=== PATIENT | female | born 1995 | race Caucasian/White ===

== ENCOUNTER 2016-11-03 23:50 | Emergency (ER) | payer SELFPAY ==
[~2016-11-03] VITALS: Ht 154.9 cm; Wt 52.2 kg
[~2016-11-03 23:50] MED LIST: ACHD5005 PO; AMOX500C2 PO; BIRTH CONTROL; CEPH-507 PO; DEPOPROVERA; HYDR-3812 PO; IBP600T1 PO; IBUP-1773 PO; LRT10T; METH4TAB PO; METR500T PO; PREN-98 PO; PREN1TAB14 PO; SERT50TA; SRTR100T; ZOLOFT
[2016-11-04] MEDS ORDERED: hydrOXYzine (VISTARIL) 25 MG CAP PO ONE (00:15)
[2016-11-04] MEDS ORDERED: predniSONE 20 MG TAB PO ONE (00:15)
[2016-11-04] MEDS ORDERED: DEXAMETHASONE PF 10 MG/ML (DECADRON) VIAL IM ONE (00:15)
[2016-11-04] MEDS ORDERED: FAMOTIDINE 20MG/2ML IV (PEPCID) IVP ONE (00:15)
[2016-11-04] MEDS ORDERED: diphenhydrAMINE 50 MG/ML INJ (BENADRYL) IM ONE (00:15)
[2016-11-04] MEDS ORDERED: FAMOTIDINE 20 MG (PEPCID) TABLET PO ONE (00:15)
[2016-11-04] MEDS ORDERED: DEXAMETHASONE PF 10 MG/ML (DECADRON) VIAL IV ONE (00:15)
[2016-11-04] MEDS ORDERED: HYDR25CA PO (00:55)
[2016-11-04] MEDS ORDERED: PRD20T PO (00:55)
[2016-11-04] MEDS ORDERED: FAMO-119 PO (00:55)
--- NOTE | 2016-11-04 00:55 | ED Integumentary General ---
General Chief Complaint: Allergic Reaction Stated Complaint: HIVES Nursing Triage Note: c/o hives since 0800 this morning, reports took benadryl 50mg once at 1500 History of Present Illness Time seen by provider: 00:00 Initial Comments As above. Similar episode years ago, but recently. ? caused by chocolate covered fruit per sig other. Timing/Duration: this morning, getting worse Location: generalized Possible Cause: no cause identified Modifying Factors: improves with other (none) Associated Symptoms: hives rash Allergies and Home Medications Allergies Coded Allergies: duloxetine (Unverified Allergy, Mild, 07/14/10) milk (Unverified Adverse Reaction, Unknown, 07/29/15) Uncoded Allergies: SILK TAPE (Allergy, Mild, 03/16/09) Home Medications Famotidine 20 Mg Tablet 5Days 20 MG PO BID Prescribed by: DEA DUBOSE on 11/04/1654 Hydroxyzine Pamoate 25 Mg Capsule #20 25 MG PO Q6H PRN PRN rash/itch Prescribed by: DEA DUBOSE on 11/04/1654 Prednisone 20 Mg Tab 4Days 50 MG PO DAILY Prescribed by: DEA DUBOSE on 11/04/1654 Constitutional: see HPI Skin: see HPI pruritus rash All Other Systems Reviewed Negative Unless Noted: Yes (Negative excepted noted.) Past Cqphybo-Ezzyfx-Lbvwma Hx Patient Social History Alcohol Use: Occasionally Uses Recreational Drug Use: No Smoking Status: Current Everyday Smoker Type Used: Cigarettes Former Smoker/When Quit: Mar 29, 2015 Recent Foreign Travel: No Contact w/Someone Who Travel: No Recent Infectious Disease Expo: No Recent Hopitalizations: No Physical Abuse Screen: No Sexual Abuse: No Immunizations Up To Date Tetanus Booster (TDap): Less than 5yrs Date of Influenza Vaccine: Jul 26, 2015 Seasonal Allergies Seasonal Allergies: No Surgeries HX Surgeries: No Respiratory Hx Respiratory Disorders: No Cardiovascular Hx Cardiac Disorders: No (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.) Neurological Hx Neurological Disorders: No Reproductive System Hx Reproductive Disorders: No Sexually Transmitted Disease: No HIV/AIDS: No Female Reproductive Disorders: Denies Genitourinary Hx Genitourinary Disorders: No Gastrointestinal Hx Gastrointestinal Disorders: No Musculoskeletal Hx Musculoskeletal Disorders: No Endocrine Hx Endocrine Disorders: No (HYPOGLYCEMIA WHEN ) HEENT HX ENT Disorders: No Loss of Vision: Denies Hearing Impairment: Denies Cancer Hx Cancer: No Psychosocial Hx Psychiatric Problems: Yes (age 14 yrs) Behavioral Health Disorders: Anxiety, Depression Integumentary HX Skin/Integumentary Disorder: No Blood Transfusions Hx Blood Disorders: No Adverse Reaction to a Blood Tr: No Family Medical History Family Medial History: Cancer 03 MOTHER (BREAST CANCER AND BONE CANCER- AT 36YEARS) MATERNAL GRANDMOTHER (CERVICAL CANCER) MATERNAL GRANDFATHER (BONE CANCER- AGE 26YR ) Cataract PATERNAL GRANDFATHER Family history: Allergy 03 FATHER (REACTION TO ANESTHESIA WHEN HE HAD SURGERY) Family history: Arthritis MATERNAL GRANDMOTHER (RA) Family history: Breast disease 03 MOTHER Family history: Diabetes mellitus 03 FATHER (IDDM) PATERNAL GRANDFATHER (IDDM) Family history: Hypertension 03 FATHER History of - anemia 03 MOTHER History of - respiratory disease MATERNAL GRANDMOTHER Hypercholesterolemia 03 FATHER Psychotic disorder 03 FATHER (PARANOID SCHIZOPRHENIC) No Family History of: Abdominal aortic aneurysm Meigs's disease Alcoholism Aphasia Cancer of colon Chest pain Congenital heart disease Congestive heart failure Cystic fibrosis Dementia Dysphagia Family history: Alzheimer's disease Family history: Asthma Family history: Cardiovascular disease Family history: Coronary thrombosis Family history: Gastrointestinal disease Family history: Glaucoma Family history: Osteoporosis Family history: Thyroid disorder Headache Hearing loss Heart disease Hereditary disease History of - disorder History of drug abuse Human immunodeficiency virus (HIV) seropositivity Infertile Kidney disease Malignant neoplasm of lung Myocardial infarction Parkinson's disease Prostate cancer Seizure disorder Stroke Tuberculosis Visual impairment Physical Exam Vital Signs Vital Sign - Last 12Hours 11/03/16 11/04/16 23:54 01:02 Temp 97.0 Pulse 94 Resp 18 B/P 105/60 Pulse Ox 18 Capillary Refill : Less Than 3 Seconds General Appearance: WD/WN mild distress HEENT: pharynx normal Cardiovascular: regular rate, rhythm Respiratory: no respiratory distress Neurologic/Psychiatric: no motor/sensory deficits alert oriented x 3 Skin: warm/dry rash Skin Problem Location: generalized Skin Problem Character: blanching, urticarial Progress/Results/Core Measures Results/Orders My Orders Orders-DEA DUBOSE DO Saline Lock/Iv-Start (11/04/16 00:04) Hydroxyzine Oral (Vistaril Capsule) (11/04/16 00:15) Famotidine Injection (Pepcid Injection) (11/04/16 00:15) Dexamethasone Pf Injection (Decadron Pf (11/04/16 00:15) Diphenhydramine Injection (Benadryl Inje (11/04/16 00:15) Prednisone Tablet (Deltasone Tablet) (11/04/16 00:15) Famotidine Tablet (Pepcid Tablet) (11/04/16 00:15) Dexamethasone Pf Injection (Decadron Pf (11/04/16 00:15) Medications Given in ED Current Medications Medications Dose Ordered Sig/Ervin Route Start Time Stop Time Status Last Admin Dose Admin Dexamethasone Sodium Phosphate 10 mg ONCE ONCE IM 11/04/16 00:15 11/04/16 00:17 DC 11/04/16 00:22 10 MG Diphenhydramine HCl 50 mg ONCE ONCE IM 11/04/16 00:15 11/04/16 00:16 DC 11/04/16 00:22 50 MG Famotidine 20 mg ONCE ONCE PO 11/04/16 00:15 11/04/16 00:17 DC 11/04/16 00:22 20 MG Hydroxyzine Pamoate 25 mg ONCE ONCE PO 11/04/16 00:15 11/04/16 00:16 DC 11/04/16 00:22 25 MG Prednisone 50 mg ONCE ONCE PO 11/04/16 00:15 11/04/16 00:16 DC 11/04/16 00:22 50 MG Vital Signs/I&O Vital Sign - Last 12Hours 11/03/16 11/04/16 23:54 01:02 Temp 97.0 98.2 Pulse 94 82 Resp 18 B/P 105/60 Pulse Ox 18 98 Blood Pressure Mean: 75 Progress Note : Progress Note Improved @ discharge. Departure Impression Impression: Primary Impression: Urticaria of entire body Disposition: HOME, SELF-CARE Condition: Improved Departure-Patient Inst. Decision time for Depature: 00:53 Referrals: JESSE BHAT DO (PCP/Family) Primary Care Physician Patient Instructions: Pedrito (JESSI) Scripts Hydroxyzine Pamoate (Vistaril)25 Mg [id number] Mg PO Q6H PRN rash/itch #20 CAP Ref 0 Prov:DEA DUBOSE DO 11/04/16 Prednisone 20 Mg Tab50 Mg PO DAILY 4 Days Ref 0 Prov:DEA DUBOSE DO 11/04/16 Famotidine (Pepcid)20 Mg [id number] Mg PO BID 5 Days Ref 0 Prov:DEA DUBOSE DO 11/04/16 DEA DUBOSE DO Nov 04, 2016 00:55
[2016-11-04 01:02] VITALS: BP 102/62
== END 2016-11-04 01:00 | disposition home or self-care (01) ==
LOC: EDUNIT# 23:50 → ER 23:51
DX: L50.9 Urticaria, unspecified (principal); F17.210 Nicotine dependence, cigarettes, uncomplicated
CPT/HCPCS: 96372; 99283

== ENCOUNTER 2019-10-14 23:44 | Emergency (ER) | payer BC, OTHER ==
[~2019-10-14] VITALS: Ht 175 cm; Wt 54.0 kg
[~2019-10-14 23:44] MED LIST changes: +FAMO-119 PO; -HYDR-3812 PO; +HYDR25CA PO; +PRD20T PO
--- NOTE | 2019-10-15 01:26 | ED EENT ---
History of Present Illness General Chief Complaint: Dental Problems/Pain Stated Complaint: DENTAL PAIN Source: patient Exam Limitations: no limitations (JOHNNIE SAMUELS MED STUDENT) History of Present Illness Date Seen by Provider: Oct 15, 2019 Time Seen by Provider: 01:12 Initial Comments Pt presents to ED via private conveyance with CC of tooth pain. She states since August she has known about dental abscess on right lower lingual surface of mouth that has progressively worsened in pain and pressure. Has tried motrin and tylenol without relief. Finished amoxicillin prescription without avail. Pain radiates to left maxilla and is associated with fever, chills, nausea and headache. She has an appointment with a dentist Oct 30 but is requesting any relief available due to severity of pain/pressure. Timing/Duration: other (August) Severity: severe Location: dental Prearrival Treatment: over the counter meds (tylenol 500mg ) Associated Symptoms: No change in hearing, No cough, No ear drainage, No facial pain/swelling; fever; No nasal congestion/drainage (JOHNNIE SAMUELS MED STUDENT) Timing/Duration: gradual Severity: moderate Location: dental Associated Symptoms: fever, tooth pain (VERENICE SOLORIO MD) Allergies and Home Medications Allergies Coded Allergies: duloxetine (Unverified Allergy, Mild, 07/14/10) milk (Unverified Adverse Reaction, Unknown, 07/29/15) Uncoded Allergies: SILK TAPE (Allergy, Mild, 03/16/09) Home Medications Famotidine 20 Mg Tablet, 20 MG PO BID Prescribed by: DEA DUBOSE on 11/04/1654 Hydroxyzine Pamoate 25 Mg Capsule, 25 MG PO Q6H PRN for rash/itch Prescribed by: DEA DUBOSE on 11/04/1654 Prednisone 20 Mg Tab, 50 MG PO DAILY Prescribed by: DEA DUBOSE on 11/04/1654 Patient Home Medication List Home Medication List Reviewed: Yes (JOHNNIE SAMUELS MED STUDENT) Home Medication List Reviewed: Yes (VERENICE SOLORIO MD) Review of Systems Review of Systems Constitutional: chills, fever, malaise, weakness Eyes: Denies Decreased Acuity, Denies Pain Ears: Denies Dizziness, Denies Pain Nose: denies epistaxis, denies pain Mouth: see HPI, pain, swelling Throat: denies pain, denies swelling, denies hoarse Respiratory: No cough, No short of breath Cardiovascular: No chest pain, No palpitations Gastrointestinal: No abdominal pain, No constipation, No diarrhea; nausea; No vomiting Musculoskeletal: No back pain, No joint pain Skin: No lesions, No lumps, No rash Neurological: Anxiety, Depressed Hematologic/Lymphatic: Denies Blood Clots, Denies Easy Bruising (JOHNNIE SAMUELS MED STUDENT) Constitutional: chills, fever Mouth: see HPI, pain, swelling Respiratory: No cough, No short of breath (VERENICE SOLORIO MD) Past Uakjiwk-Qddvrk-Nnvyya Hx Past Med/Social Hx: Reviewed Nursing Past Med/Soc Hx (VERENICE SOLORIO MD) Patient Social History Type Used: Cigarettes Recent Foreign Travel: No Contact w/Someone Who Travel: No Recent Hopitalizations: No (JOHNNIE SAMUELS MED STUDENT) Immunizations Up To Date Tetanus Booster (TDap): Less than 5yrs Date of Influenza Vaccine: Jul 26, 2015 (JOHNNIE SAMUELS MED STUDENT) Seasonal Allergies Seasonal Allergies: No (JOHNNIE SAMUELS MED STUDENT) Past Medical History Reproductive Disorders: No Female Reproductive Disorders: Denies Sexually Transmitted Disease: No HIV/AIDS: No Loss of Vision: Denies Hearing Impairment: Denies Anxiety, Depression Adverse Reaction/Blood Tranf: No (JOHNNIE SAMUELS MED STUDENT) Family Medical History Reviewed Nursing Family Hx (VERENICE SOLORIO MD) Cancer 03 MOTHER (BREAST CANCER AND BONE CANCER- AT 36YEARS) MATERNAL GRANDMOTHER (CERVICAL CANCER) MATERNAL GRANDFATHER (BONE CANCER- AGE 26YR ) Cataract PATERNAL GRANDFATHER Family history: Allergy 03 FATHER (REACTION TO ANESTHESIA WHEN HE HAD SURGERY) Family history: Arthritis MATERNAL GRANDMOTHER (RA) Family history: Breast disease 03 MOTHER Family history: Diabetes mellitus 03 FATHER (IDDM) PATERNAL GRANDFATHER (IDDM) Family history: Hypertension 03 FATHER History of - anemia 03 MOTHER History of - respiratory disease MATERNAL GRANDMOTHER Hypercholesterolemia 03 FATHER Psychotic disorder 03 FATHER (PARANOID SCHIZOPRHENIC) No Family History of: Abdominal aortic aneurysm Lucas's disease Alcoholism Aphasia Cancer of colon Chest pain Congenital heart disease Congestive heart failure Cystic fibrosis Dementia Dysphagia Family history: Alzheimer's disease Family history: Asthma Family history: Cardiovascular disease Family history: Coronary thrombosis Family history: Gastrointestinal disease Family history: Glaucoma Family history: Osteoporosis Family history: Thyroid disorder Headache Hearing loss Heart disease Hereditary disease History of - disorder History of drug abuse Human immunodeficiency virus (HIV) seropositivity Infertile Kidney disease Malignant neoplasm of lung Myocardial infarction Parkinson's disease Prostate cancer Seizure disorder Stroke Tuberculosis Visual impairment Cancer, Diabetes (JOHNNIE SAMUELS,MED STUDENT) Physical Exam Vital Signs Vital Signs - First Documented 10/15/19 00:46 Pulse 85 Resp 20 B/P (MAP) 109/70 (83) Pulse Ox 98 O2 Delivery Room Air (VERENICE SOLORIO MD) Height, Weight, BMI Height: 5'1" Weight: 115lbs. 0.6oz. [id number]; 27.28 BMI Method:Stated General Appearance: WD/WN, moderate distress Eyes: bilateral eye PERRL, bilateral eye EOMI Ears: bilateral ear auricle normal, bilateral ear canal normal, bilateral ear TM normal Nose: normal inspection, sinus tenderness (R maxilla ) Mouth/Throat: pharynx normal, dental tenderness, other (Keyes sized swelling R lower lingual surface of gumline, next to first molar. tender to palpation ) Neck: non-tender, supple Cardiovascular: regular rate, rhythm, no edema, no gallop, no murmur Respiratory: chest non-tender, lungs clear, normal breath sounds, no respiratory distress, no accessory muscle use Gastrointestinal: non tender, soft Neurologic/Psychiatric: alert, oriented x 3 Skin: normal color, warm/dry (JOHNNIE SAMUELS,MED STUDENT) General Appearance: WD/WN, moderate distress Mouth/Throat: pharynx normal, dental tenderness, other (Keyes sized swelling R lower lingual surface of gumline, next to first molar. tender to palpation ) Cardiovascular: regular rate, rhythm, no murmur Respiratory: lungs clear, normal breath sounds Neurologic/Psychiatric: alert, oriented x 3 Skin: normal color, warm/dry (VERENICE SOLORIO MD) Progress/Results/Core Measures Results/Orders My Orders Orders - VERENICE SOLORIO MD Lidocaine/Epi 2% 1:100,000 (Xylocaine/Ep (10/15/19 02:12) Lidocaine 2% Viscous 15 Ml (Xylocaine Vi (10/15/19 02:12) Benzocaine Extension Tube (Hurricaine Ex (10/15/19 02:13) Ketorolac Injection (Toradol Injection) (10/15/19 02:38) Lidocaine 1% Inj 20 Ml (Xylocaine 1% Inj (10/15/19 02:39) Ceftriaxone For Im Use (Rocephin For Im (10/15/19 02:39) (VERENICE SOLORIO MD) Vital Signs/I&O 10/15/19 00:46 Pulse 85 Resp 20 B/P (MAP) 109/70 (83) Pulse Ox 98 O2 Delivery Room Air (VERENICE SOLORIO MD) Progress Progress Note : Time: 01:29 Progress Note Seen and evaluated. Ordered toradol 75mg and hydrocodone. Discussed incision and drainage of abscess with pt and she agrees with plan and would like to proceed. (JOHNNIE SAMUELS,MED STUDENT) Progress Note : Progress Note Seen and evaluated the patient and agree with above except as indicated. Directed the plan of care. Lidocaine and Hurricaine spray mixture soaked gauze placed over area of concern and sent for pain control. Patient monitor. Absc essed area spontaneously drained. She actually feels better. Toradol 30 mg IM and Rocephin 1 g IM given. She will continue by mouth antibiotics as well as pain control and follow-up with dentist [facility]IS[facility]. Discharged home with return precautions. Patient verbalize understanding instructions and agreement with plan. (VERENICE SOLORIO MD) Departure Impression Primary Impression: Dental abscess Disposition: 01 HOME, SELF-CARE Condition: Improved Departure-Patient Inst. Decision time for Depature: 02:35 (VERENICE SOLORIO MD) Referrals: ITZ WILKINSON DO (PCP/Family) Primary Care Physician Patient Instructions: Tooth Abscess (DC) Add. Discharge Instructions: All discharge instructions reviewed with patient and/or family. Voiced understanding. Take antibiotics as previously prescribed. Follow-up with dentist [facility]. Use salt water rinses 3 times daily. Continue to brush her teeth. Tylenol and/or ibuprofen as needed for pain control. Return for worse pain, swelling, breathing problems or other concerns as needed. JOHNNIE SAMUELS,MED STUDENT Oct 15, 2019 01:26 VERENICE SOLORIO MD Oct 15, 2019 05:31
[2019-10-15] MEDS ORDERED: LIDOCAINE 2% VISCOUS 15 ML UDC ONE (02:12)
[2019-10-15] MEDS ORDERED: LIDOCAINE/EPI 2% 1:100,00 (XYLOCAINE) 20 ML VIAL ONE (02:12)
[2019-10-15] MEDS ORDERED: HURRICAINE EXT TUBE (BENZOCAINE) ONE (02:13)
[2019-10-15 02:35] VITALS: BP 110/69
[2019-10-15] MEDS ORDERED: KETOROLAC 60 MG/2 ML VIAL ONE (02:38)
[2019-10-15] MEDS ORDERED: cefTRIAXone 1,000 MG/2.86 ml vial (IM ONLY) ONE (02:39)
[2019-10-15] MEDS ORDERED: LIDOCAINE 1% INJ 20 ML 20 ML VIAL ONE (02:39)
== END 2019-10-15 02:37 | disposition home or self-care (01) ==
LOC: EDUNIT# 23:44 → ER 23:49
DX: K04.7 Periapical abscess without sinus (principal); F41.9 Anxiety disorder, unspecified; F32.9 Major depressive disorder, single episode, unspecified; Z88.8 Allergy status to other drugs, medicaments and biological substances; Z79.52 Long term (current) use of systemic steroids; Z80.3 Family history of malignant neoplasm of breast; Z82.49 Family history of ischemic heart disease and other diseases of the circulatory system; Z80.8 Family history of malignant neoplasm of other organs or systems; Z80.49 Family history of malignant neoplasm of other genital organs
CPT/HCPCS: 96374; 96375; 99282; 99283

== ENCOUNTER → 2021-02-15 | Outpatient (CLI) | payer OTHER ==
[~2021-02-15] MED LIST changes: +GADOBUTROL 15 MMOL/15 ML (GADAVIST) VIAL IV ONE
--- NOTE | 2021-02-15 16:09 | Diagnostic Imaging Report ---
EXAMINATION: MRI BREAST BILAT W W/O CON INDICATION: High risk screening. Patient with strong family history of breast cancer. Patient reports mother diagnosed in her early 30s from breast cancer. Patient reports tightness in both breasts. TECHNIQUE: Utilizing a 1.5 Mya magnet, the patient was placed in the prone position with a dedicated breast coil in place. Axial STIR, T2 fat sat, T1 and T1 fat-sat images are obtained without contrast. Postcontrast high-resolution dynamic images are also obtained. Pre and post contrasted images are then evaluated with [employer] for evaluation of possible angiogenesis. 6 mL of Gadavist gadolinium contrast material was administered intravenously. COMPARISON: Baseline breast MRI. Mammogram performed on 12/21/2020. FINDINGS: The breasts are composed of heterogeneous fibroglandular tissue. There is moderate background parenchymal enhancement, with scattered foci of enhancement in both breasts which are also felt to be related to background. There is no suspicious mass or non-mass enhancement that stands out above background in either breast. There is asymmetric mild retraction of both nipples, which the patient reports has been present since she was a teenager. No unexpected enhancement involving the nipples. There is no axillary or internal mammary adenopathy. IMPRESSION: No MR evidence of malignancy in either breast. BI-RADS Category 1: Negative Recommendations from the [employer] regarding breast cancer screening in women at [id number] risk: - For women with genetics-based increased risk (and their untested first-degree relatives) or with a calculated lifetime risk of 20% or more, digital mammography (DM), with or without digital breast tomosynthesis (DBT), should be performed annually beginning at age 30. - For women with histories of chest radiation therapy before the age of 30, DM, with or without DBT, should be performed annually beginning at age 25 or 8 years after radiation therapy, whichever is later. - For women with genetics-based increased risk (and their untested first-degree relatives), histories of chest radiation (cumulative dose of 10 Gy before age 30), or a calculated lifetime risk of 20% or more, breast MRI should be performed annually beginning at age 25 to 30. - For women with personal histories of breast cancer and dense breast tissue, or those diagnosed before age 50, annual surveillance with breast MRI is recommended. - For women with personal histories not included in the above, or with ADH, atypical lobular hyperplasia, or LCIS, MRI should be considered, especially if other risk factors are present. Dictated by: Dictated on workstation # [id number]
== END ==
LOC: RAD 13:59
PROVIDERS: ATTEND Nurse Practitioner Family
DX: Z12.31 Encounter for screening mammogram for malignant neoplasm of breast (principal); N64.4 Mastodynia; R92.8 Other abnormal and inconclusive findings on diagnostic imaging of breast; Z80.3 Family history of malignant neoplasm of breast
CPT/HCPCS: 77049